=== PATIENT | female | born 1960 | race Caucasian/White ===

== ENCOUNTER 2017-01-05 05:48 | Day surgery (SDC) | payer OTHER ==
[~2017-01-05] VITALS: Ht 162.6 cm; Wt 113.2 kg
[~2017-01-05 05:48] MED LIST: ALBUTEROL SULFATE 2.5 MG/0.5 ML NEB SOLUTION NEB ONE; AMLO-512 PO; ASPI81 PO; ATOR10TA84 PO; BENZOCAINE 20% 50 MCG/SPRAY 57 GM TP ONE; BUPR75 PO; HYDR200T4 PO; IPRA4AER IH; LEVO500 PO; LIDOCAINE HCL 2% 30 ML JELLY TP ONE; LIDOCAINE HCL 4% 50 ML SOLUTION TP ONE; MOME13HF IH; OMEP20 PO; TRAZ-144 PO; TRIA1CAP2 PO
[2017-01-05] MEDS ORDERED: SODIUM CHLORIDE 0.9% 1,000 ML IV ONE ×2 (06:00→06:01)
[2017-01-05 06:52] LABS: GLUCOSE,POINT OF CARE 159 MG/DL (70-110)
[2017-01-05] MEDS ORDERED: FentaNYL CITRATE-PF 100 MCG/2 ML VIAL ONE (07:19)
[2017-01-05] MEDS ORDERED: MIDAZOLAM HCL 2 MG/2 ML VIAL ONE (07:19)
[2017-01-05] MEDS ORDERED: MethylPREDNISolone SOD SUCC 125 MG/2 ML VIAL ONE (08:42)
[2017-01-05] MEDS ORDERED: MethylPREDNISolone SOD SUCC 125 MG/2 ML VIAL IVP ONE (08:45)
[2017-01-05] MEDS ORDERED: OXYGEN THERAPY IH SCH (20:00)
== END 2017-01-05 10:10 | disposition home or self-care (01) ==
LOC: SURGERY 05:48
PROVIDERS: ATTEND Internal Medicine Critical Care Medicine
DX: J38.4 Edema of larynx (principal); B37.0 Candidal stomatitis; J44.9 Chronic obstructive pulmonary disease, unspecified; M54.9 Dorsalgia, unspecified; L93.0 Discoid lupus erythematosus; F17.210 Nicotine dependence, cigarettes, uncomplicated; Z98.890 Other specified postprocedural states; Z90.49 Acquired absence of other specified parts of digestive tract; Z90.710 Acquired absence of both cervix and uterus; Z86.73 Personal history of transient ischemic attack (TIA), and cerebral infarction without residual deficits; Z88.8 Allergy status to other drugs, medicaments and biological substances; Z79.01 Long term (current) use of anticoagulants
CPT/HCPCS: 31623; 31624; 71010; 82962; 87015 ×2; 87070; 87101; 87205; 87220; 88108; 88312; 93005; 94640; J2250; J2930; J3010; J7030

== ENCOUNTER 2021-05-04 06:44 | Day surgery (SDC) | payer OTHER ==
[2021-05-03 12:42] LABS: COVID AG,FIA SOURCE NASOPHARYNGEAL
[~2021-05-04] VITALS: Ht 162.6 cm; Wt 108.2 kg
[~2021-05-04 06:44] MED LIST changes: -ALBUTEROL SULFATE 2.5 MG/0.5 ML NEB SOLUTION NEB ONE; +AMLO-258 PO; -AMLO-512 PO; +ASPI-1450 PO; -ASPI81 PO; -BENZOCAINE 20% 50 MCG/SPRAY 57 GM TP ONE; +CHOL-35 PO; +CYCL10TA17 PO; +DORZ210OS; +DOXY75CA5 PO; +GABA-1181 PO; +HYDR-4723 PO; +HYDR200T38 PO; -HYDR200T4 PO; +LEVO-72 PO; -LEVO500 PO; -LIDOCAINE HCL 2% 30 ML JELLY TP ONE; -LIDOCAINE HCL 4% 50 ML SOLUTION TP ONE; +LOSA50TA37 PO; +MAGN400T7 PO; +METF-1211 PO; +MONT-35 PO; +POTA8TAB71 PO; -TRAZ-144 PO; +TRAZ-252 PO; +XALA2.5OS OD
[2021-05-04] MEDS ORDERED: BENZOCAINE 20% 50 MCG/SPRAY 57 GM TP ONE (06:45)
[2021-05-04] MEDS ORDERED: ALBUTEROL SULFATE 2.5 MG/0.5 ML NEB SOLUTION NEB ONE (06:45)
[2021-05-04] MEDS ORDERED: LIDOCAINE 2% 30 ML JELLY TP ONE (06:45)
[2021-05-04] MEDS ORDERED: LIDOCAINE 4% 50 ML SOLUTION TP ONE (06:45)
[2021-05-04] MEDS ORDERED: SODIUM CHLORIDE 0.9% 1,000 ML IV ONE (07:00)
[2021-05-04] MEDS ORDERED: FentaNYL CITRATE PF 100 MCG/2 ML VIAL ONE (07:43)
[2021-05-04] MEDS ORDERED: MIDAZOLAM HCL 5 MG/ML VIAL ONE (07:44)
[2021-05-04 07:49] LABS: GLUCOMETER DEV NAME(LOC) SDS.; GLUCOSE,POINT OF CARE 149 MG/DL (70-110)
[2021-05-04] MEDS ORDERED: MethylPREDNISolone SOD SUCC 125 MG/2 ML VIAL IVP ONE (09:15)
[2021-05-04] MEDS ORDERED: MethylPREDNISolone SOD SUCC 125 MG/2 ML VIAL ONE (09:44)
[2021-05-04] MEDS ORDERED: PROMETHAZINE HCL/CODEINE 6.25-10MG/5ML SYRUP UDCUP PO ONE (09:45)
[2021-05-04] MEDS ORDERED: OXYGEN THERAPY IH SCH (20:00)
== END 2021-05-04 11:10 | disposition home or self-care (01) ==
LOC: SURGERY 06:44
PROVIDERS: ATTEND Internal Medicine Critical Care Medicine
DX: J38.4 Edema of larynx (principal); B37.0 Candidal stomatitis; I10 Essential (primary) hypertension; E11.9 Type 2 diabetes mellitus without complications; D64.9 Anemia, unspecified; Z79.899 Other long term (current) drug therapy; Z79.82 Long term (current) use of aspirin
CPT/HCPCS: 31623; 31624; 71045; 82962; 87015; 87070; 87077; 87101; 87205; 87206; 87220; 87426; 88108; 88184; 88185; 88312; C9803; J2250; J2930; J3010; 87186; J7613; Z7610

== ENCOUNTER 2022-08-07 06:18 | Day surgery (SDC) | payer OTHER ==
[~2022-08-07] VITALS: Ht 157.5 cm; Wt 103.6 kg
[~2022-08-07 06:18] MED LIST changes: +ATOR10TA PO; -ATOR10TA84 PO; +BUPR-344 PO; -BUPR75 PO; -CHOL-35 PO; +CHOL25TA4 PO; +CYCL-448 PO; -CYCL10TA17 PO; +DORZ10DR6; -DORZ210OS; +LOSA-382 PO; -LOSA50TA37 PO; -MOME13HF IH; +MOME13HF11 IH
[2022-08-07] MEDS ORDERED: BENZOCAINE 20% 50 MCG/SPRAY 57 GM TP ONE (06:19)
[2022-08-07] MEDS ORDERED: LIDOCAINE 4% 50 ML SOLUTION TP ONE (06:19)
[2022-08-07] MEDS ORDERED: LIDOCAINE 2% 11 ML JELLY TP ONE (06:19)
[2022-08-07] MEDS ORDERED: ALBUTEROL SULFATE 2.5 MG/0.5 ML NEB SOLUTION NEB ONE (06:19)
[2022-08-07 06:45] LABS: COVID AG,FIA SOURCE NASAL SWAB
[2022-08-07] MEDS ORDERED: SODIUM CHLORIDE 0.9% 1,000 ML IV ONE (07:00)
[2022-08-07] MEDS ORDERED: SODIUM CHLORIDE 0.9% 1,000 ML ONE (07:21)
[2022-08-07] MEDS ORDERED: MIDAZOLAM HCL 2 MG/2 ML VIAL ONE (07:47)
[2022-08-07] MEDS ORDERED: FentaNYL CITRATE PF 100 MCG/2 ML VIAL ONE (07:48)
[2022-08-07 08:24] LABS: GLUCOMETER DEV NAME(LOC) SDS.; GLUCOSE,POINT OF CARE 136 MG/DL (70-110)
[2022-08-07] MEDS ORDERED: MethylPREDNISolone SOD SUCC 125 MG/2 ML VIAL IVP ONE (09:30)
[2022-08-07] MEDS ORDERED: OXYGEN THERAPY IH SCH (20:00)
== END 2022-08-07 10:55 | disposition home or self-care (01) ==
LOC: SURGERY 06:18
PROVIDERS: ATTEND Internal Medicine Critical Care Medicine
DX: J38.4 Edema of larynx (principal); B37.0 Candidal stomatitis; I10 Essential (primary) hypertension; E11.9 Type 2 diabetes mellitus without complications; Z87.01 Personal history of pneumonia (recurrent); Z98.890 Other specified postprocedural states; Z79.4 Long term (current) use of insulin; Z20.822 Contact with and (suspected) exposure to COVID-19
CPT/HCPCS: 31623; 82962; 87101; 87220; 87070; 31624; 94640; 71045; 87015; 87426; 87206; J3010; J2250; J2930; Q9967; J7030; C9803; J7613; Z7610

== ENCOUNTER 2025-03-23 06:51 | Day surgery (SDC) | payer MEDICARE, OTHER ==
[~2025-03-23 06:51] MED LIST changes: +HYDR-4062 PO; -HYDR-4723 PO; +OMEP-148 PO; -OMEP20 PO; +SODIUM CHLORIDE 0.9% 1,000 ML ONE
[2025-03-23] MEDS ORDERED: FURO20TA5 PO (07:45)
[2025-03-23] MEDS ORDERED: EMPA25TA3 PO (07:45)
[2025-03-23] MEDS ORDERED: SEMA3TAB4 PO (07:45)
[2025-03-23] MEDS ORDERED: PRED-729 PO (07:45)
[2025-03-23] MEDS ORDERED: FentaNYL CITRATE PF 100 MCG/2 ML VIAL ONE (08:08)
[2025-03-23] MEDS ORDERED: MIDAZOLAM HCL 2 MG/2 ML VIAL ONE (08:09)
[2025-03-23] MEDS: SODIUM CHLORIDE 0.9% 1,000 ML IV ONE (08:10)
[2025-03-23 08:36] LABS: GLUCOMETER DEV NAME(LOC) SDS.; GLUCOSE,POINT OF CARE 211 MG/DL (70-110)
[2025-03-23 10:00] VITALS: PULSE 83; RESP 16; O2SAT 100
[2025-03-23] MEDS ORDERED: BENZOCAINE 20% 50 MCG/SPRAY 57 GM ONE (12:00)
[2025-03-23] MEDS ORDERED: LIDOCAINE 4% 50 ML SOLUTION ONE (12:00)
[2025-03-23] MEDS ORDERED: ALBUTEROL SULFATE 2.5 MG/0.5 ML NEB SOLUTION NEB ONE (12:00)
[2025-03-23] MEDS ORDERED: LIDOCAINE 2% 11 ML JELLY ONE (12:00)
== END 2025-03-23 13:10 | disposition home or self-care (01) ==
LOC: SDS 06:51
PROVIDERS: ATTEND Internal Medicine Critical Care Medicine
DX: R05.3 Chronic cough (principal); J38.4 Edema of larynx; B37.0 Candidal stomatitis; F17.210 Nicotine dependence, cigarettes, uncomplicated; E78.00 Pure hypercholesterolemia, unspecified; K21.9 Gastro-esophageal reflux disease without esophagitis; Z98.890 Other specified postprocedural states; Z90.710 Acquired absence of both cervix and uterus; Z79.899 Other long term (current) drug therapy; Z72.89 Other problems related to lifestyle; Z88.8 Allergy status to other drugs, medicaments and biological substances
CPT/HCPCS: 31623; 82962; 87206; 87101; 87220; 87070; 88108; 31624; 94640; 71045; 87015; J3010; J2250; J2919; J7030; J7613; Z7610